=== PATIENT | female | born 1940 | race Caucasian/White ===

== ENCOUNTER 2025-02-04 12:50 | Emergency (ER) | payer MEDICARE, BC ==
[~2025-02-04] VITALS: Ht 162.6 cm; Wt 68.0 kg
[2025-02-04 12:58] VITALS: TEMP 97.7
[2025-02-04] MEDS: FentaNYL CITRATE PF 100 MCG/2 ML VIAL IVP ONE (14:11)
[2025-02-04 15:50] VITALS: BP 144/70; PULSE 60; RESP 18; O2SAT 99
== END 2025-02-04 15:51 | disposition home or self-care (01) ==
LOC: EMS 12:50
DX: S42.291A Other displaced fracture of upper end of right humerus, initial encounter for closed fracture (principal); I10 Essential (primary) hypertension; Z90.710 Acquired absence of both cervix and uterus; Z96.649 Presence of unspecified artificial hip joint; Z96.659 Presence of unspecified artificial knee joint; Z88.5 Allergy status to narcotic agent; W01.0XXA Fall on same level from slipping, tripping and stumbling without subsequent striking against object, initial encounter; Y93.89 Activity, other specified; Y92.89 Other specified places as the place of occurrence of the external cause; Y99.8 Other external cause status
CPT/HCPCS: 99283; 96374; 29105; 73030; J3010